=== PATIENT | male | born 1940 | race Hispanic/Latino ===

== ENCOUNTER 2020-05-01 16:16 | Inpatient (IN) | payer MEDICARE ==
[~2020-05-01] VITALS: Ht 170.2 cm; Wt 70.5 kg
[~2020-05-01 16:16] MED LIST: ASPI-556 PO; CHOL100046 PO; CITA-106 PO; DONE10TA8 PO; FAMO-136 PO; FOLI1TAB85 PO; LORA-192 PO; MEMA14CA PO; NUT.237L66 PO; SEVE800T7 PO
[2020-05-01 17:05] LABS: BASOPHILS % (AUTO) 0.2 % (0.0-5.0); EOSINOPHILS % (AUTO) 0.1 % (0.0-8.0); HEMATOCRIT 44.9 % (42-54); LYMPHOCYTES % (AUTO) 10.3 % (21.0-51.0); MEAN CORPUSCULAR HGB CONC 32.3 g/dL (32.0-36.0); MEAN CORPUSCULAR VOLUME 102.3 fL (79-99); MONOCYTES % (AUTO) 4.3 % (3.0-13.0); NEUTROPHILS % (AUTO) 84.2 % (40.0-77.0); NUCLEATED RED BLOOD CELLS 0.3 % (0.0-0.19); PLATELET COUNT (AUTO) 115 K/uL (130-400); RED BLOOD CELL COUNT(AUTO) 4.39 MIL/uL (4.50-6.20); RED CELL DISTRIBUTION WIDTH 13.8 % (11.0-15.5); WHITE BLOOD COUNT (AUTO) 10.2 K/uL (4.8-10.8)
[2020-05-01 17:46] LABS: ALBUMIN 2.6 g/dL (3.5-5.0); BILIRUBIN,TOTAL 0.8 mg/dL (0.2-1.0); CRP QUANTITATIVE 170.3 mg/L (0.00-9.0); POTASSIUM 5.2 mmol/L (3.5-5.1); TOTAL PROTEIN, SERUM 8.4 g/dL (6.0-8.3)
[2020-05-01] MEDS ORDERED: DEXAMETHASONE SOD PHOSPHATE 10MG/ML 1ML VIAL ONE (18:44)
[2020-05-01] MEDS ORDERED: AZITHROMYCIN 500MG+NS 250ML 250 ML IV ONE (18:44)
[2020-05-01] MEDS ORDERED: ENOXAPARIN SODIUM 40 MG/0.4 ML SYRINGE SQ ONE (18:44)
[2020-05-01] MEDS ORDERED: CEFTRIAXONE SODIUM 1 GM ONE (18:44)
[2020-05-01] MEDS ORDERED: SODIUM CHLORIDE 0.9% 100 ML IV ONE (18:45)
[2020-05-01] MEDS ORDERED: ONDANSETRON HCL 4 MG/2 ML VIAL IVP PRN (19:45)
[2020-05-01] MEDS ORDERED: ALBUMIN (HUMAN) 25% 100 ML IV ONE ×2 (20:19→21:08)
[2020-05-01] MEDS ORDERED: SODIUM CHLORIDE 0.9% 1000ML 1,000 ML IV PRN (21:00)
[2020-05-01] MEDS ORDERED: 0.9% SODIUM CHLORIDE 1000 ML IV BAG IV PRN (21:00)
[2020-05-02] VITALS (7 sets, daily range): BP systolic 87–108; BP diastolic 45–69
--- NOTE | 2020-05-02 01:00 | NUR ---
Patient received from ED accompanied by staff to 303. Patient assisted from stretcher to bed and made comfortable. Patient is A/O to self and unable to provide information, therefore nursing assessment and data base completed using information obtained from pt records. No acute respiratory distress at this time. Patient is in stable condition.
[2020-05-02] MEDS: DEXAMETHASONE 4 MG TAB PO SCH ×2 (09:00→11:31)
--- NOTE | 2020-05-02 11:38 | NUR ---
pt to drowsy to take oral meds decadron; will ask md for iv order.
[2020-05-02] MEDS ORDERED: SODIUM CHLORIDE 0.9% 1000ML 1,000 ML IV PRN (14:45)
[2020-05-02] MEDS ORDERED: NITROGLYCERIN 0.4 MG SL TAB SL PRN (14:45)
[2020-05-02] MEDS ORDERED: 0.9% SODIUM CHLORIDE 1000 ML IV BAG IV PRN (14:45)
[2020-05-02] MEDS ORDERED: ALBUMIN (HUMAN) 25% 100 ML IV SCH (15:08)
[2020-05-02] MEDS ORDERED: ZOSYN 3.375GM+NS 50ML 50 ML IV SCH (16:00)
[2020-05-02] MEDS ORDERED: VANCOMYCIN PROTOCOL PER PHARMACY IV SCH (16:00)
[2020-05-02] MEDS: INSULIN HUMULIN R 100 UNIT/ML 3ML SQ SCH ×2 (16:30→21:00)
[2020-05-02] MEDS ORDERED: COMPOUND IV REFRIGERATED 1 EACH IVSOLN MISC PRN (16:30)
[2020-05-02] MEDS ORDERED: VANCOMYCIN 1.25 GM in SODIUM CHLORIDE 0.9% 250 ML IV SCH (17:00)
[2020-05-02] MEDS: SEVELAMER HCL 800 MG TABLET PO SCH (17:00)
[2020-05-02] MEDS ORDERED: SODIUM CHLORIDE 0.9% 250 ML IV ONE (19:40)
[2020-05-02] MEDS ORDERED: DONEPEZIL HCL 5 MG TAB PO SCH (21:00)
[2020-05-02] MEDS: MEMANTINE HCL 5 MG TABLET PO SCH (22:03)
[2020-05-02] MEDS: MIDODRINE HCL 5 MG TABLET PO SCH (22:03)
[2020-05-02] MEDS: HEPARIN SODIUM 5000UNIT/ML 1ML VIAL SQ SCH (22:06)
--- NOTE | 2020-05-02 22:57 | NUR ---
NOTE PATIENT SLEEPY AND LETHARGIC. ONLY MOANS WHEN SPEAKING TO HIM AND LIGHT SHAKE. WENT TO GET SUPPLIES FOR INSERTION OF NGT. TOLD PATIENT ABOUT PROCEDURE AND WHAT IT IS FOR IN [place] AND CYMRO. ATTEMPTED ONCE AND THIS AWOKE PATIENT SOME MORE. OPENED EYES AND WITH HANDS ATTEMPTED TO PUSH ME AWAY. ATTEMPTED ONE MORE TIME, CONTINUING TO EXPLAIN TO PATIENT PROCEDURE AND PURPOSE. HE BEGAN TO FIGHT MORE AND EVEN PULLED OUT PARTIALLY INSERTED TUBE OUT. HE IS MAKING SOME SENTENCES IN [place]IAN,BUT DIFFICULT TO UNDERSTAND SPEECH. ATTEMPTED TO FEED PATIENT SOME GELATIN TO SEE IF HE WILL TAKE MEDICATIONS WITHOUT NEED OF NGT, BUT HE WOULD TURN HEAD. OR NOT OPEN MOUTH TO RECEIVE SPOON. ONCE MORE EXPLAINED TO HIM NEED FOR TUBE AND PURPOSE. REQUESTED SOME HELP FROM ANOTHER NURSE AND REPOSITIONED HIM IN BED AND TRIED AGAIN INSERTION. WAS SUCCESSFUL IN INSERTING 14FR. NGT ON LEFT NARE. VERIFIED PLACEMENT WITH AIR BOLUS/AUSCULTATION. AND ADMINISTERED MEDICATIONS AFTER WARDS. SECURED TUBE TO PATIENT'S CHEEK AND PLACED IT OUT OF THE WAY. LEFT HIM RESTING CALM.
[2020-05-03] VITALS (8 sets, daily range): BP systolic 86–112; BP diastolic 49–71
--- NOTE | 2020-05-03 04:20 | NUR ---
NOTE IS RESTLESS AND MORE ACTIVE. HAS PULLED OUT NGT AND IV. ALSO REMOVED HIS GOWN AND UNCOVERED HIMSELF. COVERED HIM BACK AND PLACED NEW CLEAN GOWN. RESTARTED HIS IV AND WRAPPED IT WITH KERLIX TO PROTECT IT FORM BEING PULLED. WILL SEE IF PATIENT WILL TAKE SOME FLUIDS BY MOUTH NOW THAT HIS IS LESS LETHARGIC AND MORE AWAKE. BEFORE ATTEMPTING NGT REPLACEMENT.
[2020-05-03] MEDS: MIDODRINE HCL 5 MG TABLET PO SCH ×3 (05:04→20:07)
--- NOTE | 2020-05-03 05:05 | NUR ---
NOTE PATIENT'S MENTAL CONDITION HAS IMPROVED. AWAKENS EASILY. RESPONDS TO SIMPLE QUESTIONS. ATTEMPTED TO HAVE HIM DRINK WATER AND HE DID. NO PROBLEMS WITH SWALLOWING NOTED. TOLD HIM AND ADMINISTERED MIDODRINE AND PATIENT TOOK MEDICATION (CRUSHED AND DISSOLVED IN A LITTLE WATER) WITHOUT ANY PROBLEMS.
[2020-05-03] MEDS: INSULIN HUMULIN R 100 UNIT/ML 3ML SQ SCH ×4 (06:06→20:07)
[2020-05-03 06:20] LABS: HEMATOCRIT 41.7 % (42-54); MEAN CORPUSCULAR HEMOGLOBIN 32.9 pg (27.0-33.0); MEAN CORPUSCULAR HGB CONC 31.9 g/dL (32.0-36.0); MEAN CORPUSCULAR VOLUME 103.2 fL (79-99); NUCLEATED RED BLOOD CELLS 0.6 % (0.0-0.19); RED BLOOD CELL COUNT(AUTO) 4.04 MIL/uL (4.50-6.20); RED CELL DISTRIBUTION WIDTH 13.8 % (11.0-15.5); WHITE BLOOD COUNT (AUTO) 10.6 K/uL (4.8-10.8)
[2020-05-03 06:43] LABS: ALBUMIN 2.6 g/dL (3.5-5.0); BILIRUBIN,DIRECT 0.4 mg/dL (0.0-0.3); BILIRUBIN,TOTAL 0.9 mg/dL (0.2-1.0); CREATININE 4.7 mg/dL (0.5-1.5); PHOSPHORUS 4.6 mg/dL (2.5-4.9); POTASSIUM 4.1 mmol/L (3.5-5.1); TOTAL PROTEIN, SERUM 7.2 g/dL (6.0-8.3)
[2020-05-03] MEDS: SEVELAMER HCL 800 MG TABLET PO SCH ×3 (08:00→17:00)
[2020-05-03] MEDS ORDERED: LORAZEPAM 1 MG TABLET PO SCH (09:00)
[2020-05-03] MEDS: **HM** VIT D3 1000 UNITS PO SCH (09:00)
[2020-05-03] MEDS ORDERED: CITALOPRAM 20 MG TABLET PO SCH (09:00)
[2020-05-03] MEDS: MEMANTINE HCL 5 MG TABLET PO SCH ×2 (09:26→20:07)
[2020-05-03] MEDS: FOLIC ACID/VITAMIN B COMP W-C 1 CAP TAB PO SCH (09:27)
[2020-05-03] MEDS: FAMOTIDINE 20MG TAB 20 MG TAB PO SCH (09:27)
[2020-05-03] MEDS: DEXAMETHASONE 4 MG TAB PO SCH (09:27)
[2020-05-03] MEDS: ASPIRIN 81 MG EC TAB PO SCH (09:28)
[2020-05-03] MEDS: ZOSYN 3.375GM+NS 50ML 50 ML IV SCH ×2 (09:29→20:07)
[2020-05-03] MEDS: HEPARIN SODIUM 5000UNIT/ML 1ML VIAL SQ SCH ×2 (09:37→21:27)
[2020-05-03] MEDS ORDERED: LACTULOSE 20 GM/30 ML UDCUP PO PRN (14:15)
--- NOTE | 2020-05-03 20:00 | NUR ---
assessment note patient awake , alert, ox1 person,no sob, no c/o pain at this time, side rails x4 and bed alarm on
[2020-05-04 04:11] VITALS: BP 125/77
[2020-05-04 04:53] LABS: HEMATOCRIT 41.6 % (42-54); MEAN CORPUSCULAR HEMOGLOBIN 33.3 pg (27.0-33.0); MEAN CORPUSCULAR HGB CONC 32.9 g/dL (32.0-36.0); NUCLEATED RED BLOOD CELLS 1.3 % (0.0-0.19); PLATELET COUNT (AUTO) 171 K/uL (130-400); RED BLOOD CELL COUNT(AUTO) 4.12 MIL/uL (4.50-6.20); RED CELL DISTRIBUTION WIDTH 13.5 % (11.0-15.5); WHITE BLOOD COUNT (AUTO) 6.9 K/uL (4.8-10.8)
[2020-05-04 05:24] LABS: BAND NEUTROPHILS % (MANUAL) 2 % (0-2); LYMPHOCYTES % (MANUAL) 5 % (22-44); MAN.DIFF COMMENT-IMPRESSION MANUAL DIFFERENTIAL; MONOCYTES % (MANUAL) 7 % (2-9); PLATELET MORPHOLOGY COMMENT ADEQUATE; REACTIVE LYMPHOCYTES 1 % (0-0); SEGMENTED NEUTROPHILS % 85 % (40-70)
[2020-05-04 05:26] LABS: CREATININE 6.3 mg/dL (0.5-1.5); POTASSIUM 4.2 mmol/L (3.5-5.1)
[2020-05-04] MEDS: INSULIN HUMULIN R 100 UNIT/ML 3ML SQ SCH ×4 (06:00→21:00)
[2020-05-04 08:00] VITALS: BP 81/43
[2020-05-04] MEDS: MIDODRINE HCL 5 MG TABLET PO SCH ×3 (09:18→19:51)
[2020-05-04] MEDS: FOLIC ACID/VITAMIN B COMP W-C 1 CAP TAB PO SCH (09:18)
[2020-05-04] MEDS: FAMOTIDINE 20MG TAB 20 MG TAB PO SCH (09:18)
[2020-05-04] MEDS: MEMANTINE HCL 5 MG TABLET PO SCH ×2 (09:18→19:51)
[2020-05-04] MEDS: ASPIRIN 81 MG EC TAB PO SCH (09:18)
[2020-05-04] MEDS: DEXAMETHASONE 4 MG TAB PO SCH (09:19)
[2020-05-04] MEDS: SEVELAMER HCL 800 MG TABLET PO SCH ×3 (09:24→17:53)
[2020-05-04] MEDS ORDERED: ALBUMIN (HUMAN) 25% 200 ML IV ONE (09:52)
[2020-05-04] MEDS: **HM** VIT D3 1000 UNITS PO SCH (10:00)
[2020-05-04] MEDS: ZOSYN 3.375GM+NS 50ML 50 ML IV SCH ×3 (10:01→19:02)
[2020-05-04] MEDS: HEPARIN SODIUM 5000UNIT/ML 1ML VIAL SQ SCH ×2 (10:02→21:38)
--- NOTE | 2020-05-04 10:11 | NUR ---
CURRENTLY RECEIVING HEMODIALYSIS TX. A/OX 3, CALM AND PLEASANT WITH NO CURRENT C/O PAIN OR RESP DIFFICULTY ON ROOM AIR
[2020-05-04] MEDS: ACETAMINOPHEN 325 MG TAB PO PRN (11:39)
[2020-05-04 12:00] VITALS: BP 93/51
--- NOTE | 2020-05-04 13:38 | NUR ---
CM NOTE/IA UNSUCCESSFUL NEXT OF KIN CALLED, JULIA HERNANDEZ, FOR IA INFORMATION, NO ANSWER. CM TO FOLLOW UP. Addendum: 05/04/20 at 1748 by ALEJO HENDRIX RN CM Amended: Links added.
--- NOTE | 2020-05-04 14:59 | NUR ---
NEW ORDERS PER DR HATHAWAY, CBC W/MANUAL DIFF, PHOS, BMP
[2020-05-04 15:30] VITALS: BP 95/52
--- NOTE | 2020-05-04 16:00 | NUR ---
CM NOTE/IA UNSUCCESSFUL NEXT OF KIN CALLED, JULIA HERNANDEZ, FOR IA INFORMATION, NO ANSWER. CM TO FOLLOW UP. Addendum: 05/04/20 at 1749 by ALEJO HENDRIX RN CM Amended: Links added.
--- NOTE | 2020-05-04 16:11 | NUR ---
PT TO BE MOVED TO RM 409
--- NOTE | 2020-05-04 16:11 | NUR ---
PT REMOVED HIS IV; NEW ORDER TO LEAVE IT OUT PER DENISE SARGENT MANAGER OF MEDICAL
--- NOTE | 2020-05-04 17:21 | NUR ---
MOVE BY BED TO RM 409
[2020-05-04 20:00] VITALS: BP 163/67
--- NOTE | 2020-05-04 20:00 | NUR ---
assessment note patient awake alert, ox1, no sob, no c/o pain at this time, assist to turn q 2 hours, bed alarm intact
[2020-05-05] VITALS: BP 163/69
[2020-05-05 04:00] VITALS: BP 137/63
[2020-05-05 04:24] LABS: ABG BASE EXCESS 5.8 mmol/L (-2.0-3.0); ABG HCO3 29.5 mmol/L (21.0-28.0); ABG OXYGEN SATURATION 92.9 % (95.0-99.0); ABG PCO2 40 mmHg (35-48)
[2020-05-05 04:36] LABS: BASOPHILS % (AUTO) 0.3 % (0.0-5.0); HEMATOCRIT 43.4 % (42-54); LYMPHOCYTES % (AUTO) 8.8 % (21.0-51.0); MEAN CORPUSCULAR HEMOGLOBIN 32.7 pg (27.0-33.0); MEAN CORPUSCULAR VOLUME 102.1 fL (79-99); MONOCYTES % (AUTO) 8.1 % (3.0-13.0); NEUTROPHILS % (AUTO) 79.6 % (40.0-77.0); NUCLEATED RED BLOOD CELLS 2.1 % (0.0-0.19); PLATELET COUNT (AUTO) 227 K/uL (130-400); RED BLOOD CELL COUNT(AUTO) 4.25 MIL/uL (4.50-6.20); RED CELL DISTRIBUTION WIDTH 13.6 % (11.0-15.5); WHITE BLOOD COUNT (AUTO) 9.8 K/uL (4.8-10.8)
[2020-05-05 05:09] LABS: ALBUMIN 3.3 g/dL (3.5-5.0); BILIRUBIN,TOTAL 0.9 mg/dL (0.2-1.0); CREATININE 4.7 mg/dL (0.5-1.5); MAGNESIUM 2.6 mg/dL (1.80-2.40); TOTAL PROTEIN, SERUM 7.6 g/dL (6.0-8.3)
[2020-05-05] MEDS: INSULIN HUMULIN R 100 UNIT/ML 3ML SQ SCH ×4 (05:50→21:00)
[2020-05-05] MEDS: ACETAMINOPHEN 325 MG TAB PO PRN ×2 (06:55→17:10)
[2020-05-05 08:08] VITALS: BP 126/59
[2020-05-05] MEDS: **HM** VIT D3 1000 UNITS PO SCH (09:00)
[2020-05-05] MEDS: ASPIRIN 81 MG EC TAB PO SCH (09:23)
[2020-05-05] MEDS: MEMANTINE HCL 5 MG TABLET PO SCH ×2 (09:23→20:24)
[2020-05-05] MEDS: HEPARIN SODIUM 5000UNIT/ML 1ML VIAL SQ SCH ×2 (09:23→20:25)
[2020-05-05] MEDS: FAMOTIDINE 20MG TAB 20 MG TAB PO SCH (09:24)
[2020-05-05] MEDS: MIDODRINE HCL 5 MG TABLET PO SCH ×3 (09:24→20:24)
[2020-05-05] MEDS: FOLIC ACID/VITAMIN B COMP W-C 1 CAP TAB PO SCH (09:26)
[2020-05-05] MEDS: DEXAMETHASONE 4 MG TAB PO SCH (09:26)
[2020-05-05] MEDS: SEVELAMER HCL 800 MG TABLET PO SCH ×3 (09:26→17:11)
[2020-05-05 12:21] VITALS: BP 100/68
--- NOTE | 2020-05-05 14:52 | NUR ---
CM NOTE/IA/DCP [facility]/US RENAL PLACED CALL TO SON [phone], JULIA HERNANDEZ. PER SON, PATIENT LIVES AT [facility]. DEPENDENT WITH ALL ADLS, ATTENDS DIALYSIS AT [facility], AND USES SNF PROVIDER MEDICATIONS THRU THEIR PHARMACY. PER SON, OK TO RETURN TO [facility]ICER, SUSHMA COMPLETED. CLINICAL PACKET EMAILED TO REP FARHANA FOR SNF. CALLED [facility] TO CONFIRM PLACE OF DIALYSIS. PER YOVANA, YES PATIENT IS THEIRS AND HAS MWF SCHEDULE. UPDATED CLINICALS AND COVID LABWORK FAXED TO [facility] FOR CONTINUATION OF CARE. PER YOVANA, PATIENT WAS COVID POSITIVE PREVIOUSLY AND SPECIAL ARRANGEMENTS D/T DIAGNOSIS ALREADY MADE. Addendum: 05/05/20 at 1501 by ALEJO HENDRIX RN CM Amended: Links added.
[2020-05-05 16:38] VITALS: BP 101/59
--- NOTE | 2020-05-05 17:12 | NUR ---
CM NOTE/[facility] PER FARHANA FROM [facility], OK TO RETURN TO FACILITY ONCE READY FOR DC.
--- NOTE | 2020-05-05 18:09 | NUR ---
pt was restless throughout the day, bed alarm went off and pt found standing on side of bed attempting to have a bm. myself and medical billing instructor placed pt back, ketan care done, and pt able to tell the medical billing instructor in Serbian that he is in pain, 2 tabs tylenol po given. plan is for pt to be dcd back to SNF tomorrow, after dialysis
[2020-05-05] MEDS: ZOSYN 3.375GM+NS 50ML 50 ML IV SCH (19:27)
[2020-05-05 20:12] VITALS: BP 117/60
--- NOTE | 2020-05-05 22:30 | NUR ---
nursing obs patient awake, alert ox1, no sob no c/o pain at this time, patient given a bed bath, tolerated well
[2020-05-06 00:12] VITALS: BP 119/70
[2020-05-06 04:12] VITALS: BP 109/68
[2020-05-06] MEDS: INSULIN HUMULIN R 100 UNIT/ML 3ML SQ SCH ×4 (05:57→20:48)
[2020-05-06 06:35] LABS: BASOPHILS % (AUTO) 0.6 % (0.0-5.0); HEMATOCRIT 46.6 % (42-54); LYMPHOCYTES % (AUTO) 6.9 % (21.0-51.0); MEAN CORPUSCULAR HEMOGLOBIN 33.3 pg (27.0-33.0); MEAN CORPUSCULAR VOLUME 100.9 fL (79-99); MONOCYTES % (AUTO) 8.4 % (3.0-13.0); NEUTROPHILS % (AUTO) 78.3 % (40.0-77.0); NUCLEATED RED BLOOD CELLS 6.2 % (0.0-0.19); PLATELET COUNT (AUTO) 274 K/uL (130-400); RED BLOOD CELL COUNT(AUTO) 4.62 MIL/uL (4.50-6.20); RED CELL DISTRIBUTION WIDTH 13.3 % (11.0-15.5); WHITE BLOOD COUNT (AUTO) 13.6 K/uL (4.8-10.8)
[2020-05-06 06:57] LABS: CREATININE 6.4 mg/dL (0.5-1.5); POTASSIUM 3.7 mmol/L (3.5-5.1)
[2020-05-06 06:59] LABS: LYMPHOCYTES % (MANUAL) 4 % (22-44); MAN.DIFF COMMENT-IMPRESSION MANUAL DIFFERENTIAL; MONOCYTES % (MANUAL) 10 % (2-9); PLATELET MORPHOLOGY COMMENT ADEQUATE; SEGMENTED NEUTROPHILS % 86 % (40-70)
[2020-05-06] MEDS: SEVELAMER HCL 800 MG TABLET PO SCH ×3 (07:46→16:55)
[2020-05-06 07:50] VITALS: BP 123/71
[2020-05-06] MEDS: **HM** VIT D3 1000 UNITS PO SCH (09:00)
[2020-05-06] MEDS: ZOSYN 3.375GM+NS 50ML 50 ML IV SCH ×2 (09:11→20:29)
[2020-05-06] MEDS: FOLIC ACID/VITAMIN B COMP W-C 1 CAP TAB PO SCH (09:25)
[2020-05-06] MEDS: DEXAMETHASONE 4 MG TAB PO SCH (09:25)
[2020-05-06] MEDS: FAMOTIDINE 20MG TAB 20 MG TAB PO SCH (09:25)
[2020-05-06] MEDS: MEMANTINE HCL 5 MG TABLET PO SCH ×2 (09:26→20:28)
[2020-05-06] MEDS: MIDODRINE HCL 5 MG TABLET PO SCH ×3 (09:27→20:28)
[2020-05-06] MEDS: ASPIRIN 81 MG EC TAB PO SCH (09:28)
[2020-05-06] MEDS: HEPARIN SODIUM 5000UNIT/ML 1ML VIAL SQ SCH ×2 (09:38→20:29)
[2020-05-06 12:00] VITALS: BP 116/68
[2020-05-06 15:27] VITALS: BP 117/87
--- NOTE | 2020-05-06 17:06 | NUR ---
PT received dialysis today, pt hu well, unable to remove any fluid, due to pt low bp,MD aware, pt will be transferred back to SNF, within the next 2 days, will continue to moniter pt
[2020-05-06 20:08] VITALS: BP 133/67
[2020-05-07 00:08] VITALS: BP 136/74
[2020-05-07 04:08] VITALS: BP 138/63
[2020-05-07] MEDS: INSULIN HUMULIN R 100 UNIT/ML 3ML SQ SCH ×3 (06:08→16:30)
[2020-05-07 07:51] VITALS: BP 129/61
[2020-05-07] MEDS: SEVELAMER HCL 800 MG TABLET PO SCH ×3 (08:00→17:00)
[2020-05-07] MEDS: **HM** VIT D3 1000 UNITS PO SCH (09:00)
[2020-05-07] MEDS: FAMOTIDINE 20MG TAB 20 MG TAB PO SCH (09:28)
[2020-05-07] MEDS: MEMANTINE HCL 5 MG TABLET PO SCH (09:28)
[2020-05-07] MEDS: DEXAMETHASONE 4 MG TAB PO SCH (09:28)
[2020-05-07] MEDS: ASPIRIN 81 MG EC TAB PO SCH (09:28)
[2020-05-07] MEDS: FOLIC ACID/VITAMIN B COMP W-C 1 CAP TAB PO SCH (09:28)
[2020-05-07] MEDS: MIDODRINE HCL 5 MG TABLET PO SCH ×2 (09:28→14:00)
[2020-05-07] MEDS: HEPARIN SODIUM 5000UNIT/ML 1ML VIAL SQ SCH (09:30)
[2020-05-07] MEDS: ZOSYN 3.375GM+NS 50ML 50 ML IV SCH (09:32)
[2020-05-07 11:57] VITALS: BP 128/71
[2020-05-07 16:15] VITALS: BP 150/83
--- NOTE | 2020-05-07 16:48 | NUR ---
cm note call made to Mena from [facility] and states pt is accepted at [facility], and she already has the covid form, informed her that [facility] was advised that pt is covid positive, and faxed clinical on 05/05/20 and stated ok to return to renal clinic for dialysis, but will need to know when last dialysis treatment given at hospital. per Mena their DON will follow up on this on friday, informed last HD at hospital was on 05/06/2020.this cm attempted to fax flow sheet today to [facility] and advise, however closed for today, per Mena their DON will followup tomorrow. ok to call report to [facility]. pt will be transferred via ems. charge nurse aware.
--- NOTE | 2020-05-07 17:24 | NUR ---
PT SCHEDULED to be d/cd back to [facility],report called and I spoke to Kenia BEAVER. Will call ambulance so they can transport pt back to SNF.
--- NOTE | 2020-05-08 08:43 | NUR ---
cm note call made to alexis at [facility] and updated on pt's return back to [facility], and covid positive status, state she is aware and is aware that pt is at [facility] and states [facility] has been bringing pt to HD center and states they are aware pt is covid positive and states [facility] know to bring him to center, as this was being done already prior to admit.
== END 2020-05-07 18:25 | DRG 177 ==
LOC: EDH 16:16 → OBSVTOIN 18:57 → EDHIP 18:57 → 3AH 05-02 01:54 → 4CH 05-02 13:05 → 4BH 05-04 16:40
PROVIDERS: ADMIT Internal Medicine Critical Care Medicine; ATTEND Internal Medicine Critical Care Medicine
PROC: 5A1D70Z Performance of Urinary Filtration, Intermittent, Less than 6 Hours Per Day (ICD-10-PCS; principal; 2020-05-01)
PROC: 5A1D70Z Performance of Urinary Filtration, Intermittent, Less than 6 Hours Per Day (ICD-10-PCS; 2020-05-02)
PROC: 5A1D70Z Performance of Urinary Filtration, Intermittent, Less than 6 Hours Per Day (ICD-10-PCS; 2020-05-04)
PROC: 5A1D70Z Performance of Urinary Filtration, Intermittent, Less than 6 Hours Per Day (ICD-10-PCS; 2020-05-06)
DX: U07.1 COVID-19 (principal); J12.89 Other viral pneumonia; J96.01 Acute respiratory failure with hypoxia; G93.41 Metabolic encephalopathy; N18.6 End stage renal disease; I12.0 Hypertensive chronic kidney disease with stage 5 chronic kidney disease or end stage renal disease; J90 Pleural effusion, not elsewhere classified; E11.22 Type 2 diabetes mellitus with diabetic chronic kidney disease; E03.9 Hypothyroidism, unspecified; F02.80 Dementia in other diseases classified elsewhere, unspecified severity, without behavioral disturbance, psychotic disturbance, mood disturbance, and anxiety; G30.9 Alzheimer's disease, unspecified; D63.8 Anemia in other chronic diseases classified elsewhere; Z66 Do not resuscitate; E11.51 Type 2 diabetes mellitus with diabetic peripheral angiopathy without gangrene; F79 Unspecified intellectual disabilities; I48.91 Unspecified atrial fibrillation; Y95 Nosocomial condition; Z99.2 Dependence on renal dialysis; Z79.899 Other long term (current) drug therapy; Z86.73 Personal history of transient ischemic attack (TIA), and cerebral infarction without residual deficits
CPT/HCPCS: 36415; 36600; 70450; 71045; 71250; 80048; 80053; 80076; 82140; 82550; 82728; 82803; 82948; 83605; 83735; 84100; 84484; 85025; 85027; 85378; 86140; 87426; 90935; 93005; 99291; A6454; G0378; J0456; J0696; J1100; J1644; J1650; J2543; J3370; J7050; J8540; P9046